=== PATIENT | male | born 1995 | race Asian ===

== ENCOUNTER 2018-11-07 09:20 | Emergency (ER) | payer BC ==
[~2018-11-07] VITALS: Ht 165.1 cm; Wt 61.2 kg
--- NOTE | 2018-11-07 09:37 | NUR ---
pt ambulated to er bed 12
[2018-11-07 09:42] VITALS: BP 132/70
--- NOTE | 2018-11-07 09:50 | NUR ---
PATIENT PRESENTS TO ED WITH c/o anxiety, worried feeling---denies visual/auditory hallucinations full clear speech with no accessory muscle use noted.. DENIES N/V/D; SKIN IS PINK/WARM/DRY; AAOX4 WITH EVEN AND STEADY GAIT; LUNGS CLEAR BL; HR EVEN AND REGULAR; PT DENIES ANY FEVER, CP, SOB, OR COUGH AT THIS TIME; PATIENT STATES PAIN OF 0/10 AT THIS TIME; VSS; PATIENT POSITIONED FOR COMFORT; HOB ELEVATED; BEDRAILS UP X2; BED DOWN. ER MD MADE AWARE OF PT STATUS.
[2018-11-07] MEDS ORDERED: hydrOXYzine HCL 25 MG TAB PO ONE (11:35)
--- NOTE | 2018-11-07 11:55 | NUR ---
encouraged pt to provide urine sample
--- NOTE | 2018-11-07 12:14 | NUR ---
lab notified of urine sample to be picked up
[2018-11-07 12:45] VITALS: BP 116/70
--- NOTE | 2018-11-07 12:46 | NUR ---
Patient discharged with v/s stable. Written and verbal after care instructions given and explained. Patient alert, oriented and verbalized understanding of instructions. Ambulatory with steady gait. All questions addressed prior to discharge. ID band removed. Patient advised to follow up with PMD. Rx of vistaril given. Patient educated on indication of medication including possible reaction and side effects. Opportunity to ask questions provided and answered.
[2018-11-07 14:29] LABS: BARBITURATE, URINE NEG. ng/ml (NEG <=200); BENZODIAZEPINE, URINE NEG. ng/mL (NEG <=200); CANNABINOID, URINE NEG. ng/mL (NEG <=50); COCAINE, URINE NEG. ng/mL (NEG <=300); OPIATE, URINE NEG. ng/mL (NEG <=2000); PHENCYCLIDINE SCREEN,URINE NEG. ng/mL (NEG <=25)
== END 2018-11-07 12:46 | disposition home or self-care (01) ==
LOC: MED 09:20
DX: F41.9 Anxiety disorder, unspecified (principal); R11.10 Vomiting, unspecified; F12.10 Cannabis abuse, uncomplicated
CPT/HCPCS: 80305; 99283